=== PATIENT | male | born 1950 | race Caucasian/White ===

== ENCOUNTER 2017-11-10 16:59 | Inpatient (IN) | payer MEDICAID, MEDICARE ==
[~2017-11-10] VITALS: Ht 177.8 cm; Wt 81.2 kg
--- NOTE | 2017-11-10 17:02 | NUR ---
PT HERNANDO FROM THE STREETS TO ER BED 11 C/O L SIDED CHEST PAIN R/T LUE. STARTED 45 MINS ONLINE FACILITATOR. HX OF HEART BYPASS 2013. GOWNED AND PLACED ON MONITOR. STABLE VITALS. AWAITING MD AGUILAR.
--- NOTE | 2017-11-10 17:04 | NUR ---
DR TAMAYO AT BEDSIDE FOR EVAL.
--- NOTE | 2017-11-10 17:18 | NUR ---
IV LINE STARTED BLOOD DRAWN AND SENT TO LAB.
[2017-11-10 17:22] LABS: BASOPHILS % (AUTO) 0.5 % (0.0-2.0); EOSINOPHILS # (AUTO) 0.4 /CMM (0.0-0.7); EOSINOPHILS % (AUTO) 5.3 % (0.0-6.0); HEMATOCRIT 43 % (39-51); HEMOGLOBIN 14.3 g/dL (13.5-17.5); LYMPHOCYTES # (AUTO) 0.7 /CMM (0.8-4.8); LYMPHOCYTES % (AUTO) 8.7 % (20.0-44.0); MEAN CORPUSCULAR HEMOGLOBIN 28 PG (26.0-33.0); MEAN CORPUSCULAR HGB CONC 33 g/dl (31.0-36.0); MEAN CORPUSCULAR VOLUME 83 fL (80-96); MONOCYTES # (AUTO) 0.7 /CMM (0.1-1.30); MONOCYTES % (AUTO) 9.3 % (2.0-12.0); NEUTROPHILS % (AUTO) 76.2 % (43.0-81.0); PLATELET COUNT (AUTO) 245 /CMM (150-450); RDW COEFFICIENT OF VARIATION 17.1 (11.5-15.0); WHITE BLOOD COUNT (AUTO) 7.8 K/uL (4.3-11.0)
[2017-11-10 17:33] LABS: CALCIUM, SERUM 8.4 mg/dL (8.5-10.1); CREATININE 1.1 mg/dL (0.6-1.3); POTASSIUM 4.2 mmol/L (3.5-5.1)
[2017-11-10] MEDS ORDERED: HYDR-552 PO (17:33)
[2017-11-10] MEDS ORDERED: ATOR80TA PO (17:33)
[2017-11-10] MEDS ORDERED: FURO-145 PO (17:33)
[2017-11-10] MEDS ORDERED: PANT40TA2 PO (17:33)
[2017-11-10] MEDS ORDERED: SACU1TAB PO (17:33)
[2017-11-10] MEDS ORDERED: ASPI-1152 PO (17:33)
[2017-11-10] MEDS ORDERED: TIOT18CA3 IH (17:33)
--- NOTE | 2017-11-10 17:33 | NUR ---
RADIOLOGY AT BEDSIDE FOR CHEST XRAY.
[2017-11-10 17:36] LABS: INR 0.98 (0.87-1.13); PROTHROMBIN TIME 10.2 SECS (9.5-12.7)
--- NOTE | 2017-11-10 17:37 | NUR ---
CALLED NURSING SUP. FOR TELE BED
[2017-11-10 17:39] LABS: ALBUMIN 2.4 g/dL (3.4-5.0); BILIRUBIN,DIRECT 0.1 mg/dL (0.0-0.2); BILIRUBIN,TOTAL 0.3 mg/dL (0.2-1.0)
[2017-11-10 17:41] LABS: TROPONIN I 0.03 ng/mL (0.00-0.056)
--- NOTE | 2017-11-10 18:40 | NUR ---
EPIC PAGED, DIRECTOR OF SPECIAL EVENTS
--- NOTE | 2017-11-10 18:50 | NUR ---
TELE 309-2
--- NOTE | 2017-11-10 19:17 | NUR ---
REPORT GIVEN TO EDITH. PT AWAITING TRANFER TO FLOOR.
[2017-11-10 19:45] VITALS: BP 128/68
--- NOTE | 2017-11-10 19:45 | NUR ---
TOOL CHECKERCARRY OUT CLERK NOTES RECEIVED ADMISSION FROM ER THIS 67 Y.O. MALE,HOMELESS,WITH CHIEF COMPLAINTS OF SHOOTING CHEST PAIN RADIATING TO RIGHT UPPER EXTREMITY,COUGH X 1 WEEK.ALERT,ORIENTED X3,BREATHING REGULAR,NO SKIN ISSUES.SALINE LOCK RIGHT WRIST INTACT AND PATENT.SHIVERING BUT NO FEVER 97.8 ORALLY.WARM BLANKET PROVIDED AND HE FEELS BETTER.KEPT COMFORTABLY ON BED,CALL LIGHT IN REACH,AWAITING FOR DOCTORS ORDER.
[2017-11-10 20:56] VITALS: BP 128/68
[2017-11-10] MEDS ORDERED: IV NS 0.9% 1,000 ML IV PRN (21:22)
[2017-11-10] MEDS ORDERED: ACETAMINOPHEN 325 MG TABLET PO PRN (21:30)
[2017-11-10] MEDS ORDERED: ZOLPIDEM TARTRATE 5 MG TABLET PO PRN (21:30)
[2017-11-10] MEDS ORDERED: ONDANSETRON HCL/PF 4 MG/2 ML VIAL IVP PRN (21:30)
[2017-11-10] MEDS ORDERED: HYDROCODONE/APAP 5/325MG 1 EACH TABLET PO PRN (21:30)
[2017-11-10] MEDS ORDERED: MAGNESIUM HYDROXIDE 30 ML UDC PO PRN (21:30)
[2017-11-10] MEDS ORDERED: MAG HYDROX/AL HYDROX/SIMETH 30 ML UDC PO PRN (21:30)
[2017-11-10] MEDS ORDERED: Z GUARD REMEDY 2 OZ OINT TP PRN (21:30)
--- NOTE | 2017-11-10 21:33 | NUR ---
MERCERIZING RANGE FEEDER NOTES STARTED ON NS 1LITER AT 75ML/HR RATE ORDERED
[2017-11-11] VITALS: BP 104/58
--- NOTE | 2017-11-11 01:30 | NUR ---
COMMUNITY SERVICE REPRESENTATIVE NOTES AWAKE,HAVING EPISODE OF COUGH,VOMITED MOSTLY MUCUS.
--- NOTE | 2017-11-11 01:32 | NUR ---
YARN DYER NOTES MEDICATED WITH ZOFRAN 4MG IV ORDERED
[2017-11-11] MEDS ORDERED: ONDANSETRON HCL/PF 4 MG/2 ML VIAL ONE (01:34)
[2017-11-11] MEDS ORDERED: ALBUTEROL FS 2.5 MG/0.5 ML VIAL.NEB ONE (01:38)
[2017-11-11] MEDS: ALBUTEROL FS 2.5 MG/0.5 ML VIAL.NEB NEB PRN ×2 (01:40→12:19)
--- NOTE | 2017-11-11 01:40 | NUR ---
TRADE RECRUITER NOTES SLIGHT WHEEZING NOTED,RT AT BEDSIDE TO ADMINISTER BREATHING TREATMENT SCHEDULED PRN FOR SOB
[2017-11-11] MEDS ORDERED: HYDROCODONE/APAP 5/325MG 1 EACH TABLET ONE (01:41)
--- NOTE | 2017-11-11 01:42 | NUR ---
ASSISTANT STORE DIRECTOR NOTES PAIN MANAGEMENT C/O ABDOMINAL PAIN 7/10 ON PAIN SCALE,MEDICATED WITH NORCO 5/325MG, 1TAB PO ORDERED.
--- NOTE | 2017-11-11 04:45 | NUR ---
BAKER SECOND NOTES COUGHS A LOT,NIRMAL ROBLES WAS PAGE FOR COUGH MEDS, AWAITING TO CALL BACK.
--- NOTE | 2017-11-11 05:00 | NUR ---
SPIRITUAL COUNSELOR NOTES NIRMAL CALLED BACK WITH NEW ORDER FOR ROBITUSSIN AC 5ML PO Q 6 HOURS PRN FOR COUGH NOTED AND CARRIED OUT.
[2017-11-11] MEDS ORDERED: GUAIFENESIN/CODEINE 10 ML UDC ONE (05:12)
--- NOTE | 2017-11-11 05:14 | NUR ---
GUEST SERVICES NOTES MEDICATED WITH ROBITUSSIN AC 5ML PO FOR COUGH
[2017-11-11] MEDS ORDERED: GUAIFENESIN/CODEINE 10 ML UDC PO PRN (05:30)
--- NOTE | 2017-11-11 06:21 | NUR ---
CHILD CENTER ASSISTANT NOTES FAIRLY RESTED.STILL WITH ON AND OFF PRODUCTIVE COUGH,MANAGE WITH DYANAITUSSIN AC ORDERED.BREATHING TREATMENT HELPS.IN NO ACUTE DISTRESS.DENIES CHEST PAIN.IVF IN PROGRESS,CALLL LIGHT IN REACH,NEEDS ATTENDED.
[2017-11-11 08:00] VITALS: BP 108/63
--- NOTE | 2017-11-11 08:14 | NUR ---
RN OPENING NOTES RECEIVED PATIENT RESTING COMFORTABLY IN BED. AOX2/3 FORGETFUL. DENIES SOB. PATIENT STATES THAT HE IS CONTINUING TO HAVE UNCHANGED CHEST PAIN RADIATING TO THE LEFT ARM. RESPIRATIONS EVEN AND UNLABORED. NO ACUTE DISTRESS NOTED. SATURATING ADEQUATELY ON RA. IV ON THE RIGHT WRIST 18G WITH NS RUNNING AT 75ML/HR. IV PATENT AND INTACT. BED LOCKED IN THE LOWEST POSITION WITH SIDE RAILS UP X2. CALL LIGHT WITHIN REACH. WILL CONTINUE TO MONITOR, ASSESS AND EDUCATE PATIENT THROUGHOUT SHIFT. Addendum: 11/11/17 at 0823 by BETHANY STEEN RN RN OPENING NOTES RECEIVED PATIENT RESTING COMFORTABLY IN BED. AOX3. DENIES SOB. PATIENT STATES THAT HE IS CONTINUING TO HAVE UNCHANGED CHEST PAIN RADIATING TO THE LEFT ARM. RESPIRATIONS EVEN AND UNLABORED. NO ACUTE DISTRESS NOTED. SATURATING ADEQUATELY ON RA. IV ON THE RIGHT WRIST 18G WITH NS RUNNING AT 75ML/HR. IV PATENT AND INTACT. BED LOCKED IN THE LOWEST POSITION WITH SIDE RAILS UP X2. CALL LIGHT WITHIN REACH. WILL CONTINUE TO MONITOR, ASSESS AND EDUCATE PATIENT THROUGHOUT SHIFT.
[2017-11-11 08:38] LABS: BASOPHILS % (AUTO) 0.8 % (0.0-2.0); EOSINOPHILS # (AUTO) 0.3 /CMM (0.0-0.7); EOSINOPHILS % (AUTO) 7.7 % (0.0-6.0); HEMATOCRIT 38 % (39-51); HEMOGLOBIN 12.5 g/dL (13.5-17.5); MEAN CORPUSCULAR HEMOGLOBIN 28 PG (26.0-33.0); MEAN CORPUSCULAR HGB CONC 33 g/dl (31.0-36.0); MEAN CORPUSCULAR VOLUME 86 fL (80-96); MONOCYTES # (AUTO) 0.6 /CMM (0.1-1.30); MONOCYTES % (AUTO) 13.5 % (2.0-12.0); NEUTROPHILS # (AUTO) 2.5 /CMM (1.8-8.9); PLATELET COUNT (AUTO) 190 /CMM (150-450); RDW COEFFICIENT OF VARIATION 18.6 (11.5-15.0); RED BLOOD CELL COUNT(AUTO) 4.41 MIL/uL (4.5-6.0); WHITE BLOOD COUNT (AUTO) 4.5 K/uL (4.3-11.0)
[2017-11-11] MEDS ORDERED: TIOTROPIUM BROMIDE 6 CAP/BOX CAP.W.DEV IH SCH (09:00)
[2017-11-11] MEDS ORDERED: FUROSEMIDE 20 MG TABLET PO SCH (09:00)
[2017-11-11] MEDS ORDERED: ASPIRIN EC 81 MG TABLET.DR PO SCH (09:00)
[2017-11-11] MEDS ORDERED: REGADENOSON 0.4 MG/5 ML DISP.SYRIN IVP ONE (09:00)
[2017-11-11 09:12] LABS: CALCIUM, SERUM 7.8 mg/dL (8.5-10.1); MAGNESIUM 1.9 mg/dL (1.8-2.4); POTASSIUM 4.2 mmol/L (3.5-5.1)
--- NOTE | 2017-11-11 09:31 | NUR ---
RN NOTES PATIENT IS BECOMING HOSTILE AND AGGRESSIVE. REFUSING TO GIVE UP MEDICATIONS. NOTIFIED PHARMACY. NOTIFIED CHARGE NURSE.
--- NOTE | 2017-11-11 11:00 | NUR ---
JOSEPH MARTINEZ PATEINT TAKEN FOR FIRST PART OF STRESS TEST. CONSENT SIGNED PATIENT NPO.
--- NOTE | 2017-11-11 12:26 | NUR ---
RN NOTES PATIENT REFUSING SECOND PART OF STRESS TEST. DR. COTTRELL AWARE. DR. WILL AWARE. PATIENT CAN LEAVE AMA PER DR. COTTRELL.
[2017-11-11] MEDS ORDERED: IPRATROPIUM NEB FS 0.5 MG/2.5 ML AMPUL.NEB NEB SCH (13:30)
--- NOTE | 2017-11-11 15:21 | NUR ---
RN NOTES PATIENT REFUSED ALL TEACHING AND D/C PAPER WORK
--- NOTE | 2017-11-11 15:21 | NUR ---
RN CLOSING NOTES PATIENT LEFT AMA. PATIENT NON COMPLIANT. AGGRESSIVE BEHAVIOR. PATIENT DISCUSSED CONSEQUENCES OF LEAVING AMA. DR. COTTRELL AND DR. WILL AWARE. PATIENT VERBALIZED UNDERSTANDING OF LEAVING AGAINST MEDICAL ADVICE. ALL MEDICATIONS RETURNED TO PATIENT. PATIENT REFUSED TO RECEIVE EXITCARE EDUCATION.
[2017-11-11] MEDS ORDERED: ATORVASTATIN 40 MG TABLET PO SCH (22:00)
== END 2017-11-11 13:50 | disposition left against medical advice (07) | DRG 198 ==
LOC: ER 17:04 → TELE 19:07 → MED 11-11 10:27
PROVIDERS: ADMIT Internal Medicine; ATTEND Internal Medicine
DX: I25.10 Atherosclerotic heart disease of native coronary artery without angina pectoris (principal); E44.0 Moderate protein-calorie malnutrition; F25.9 Schizoaffective disorder, unspecified; I10 Essential (primary) hypertension; E78.5 Hyperlipidemia, unspecified; F17.210 Nicotine dependence, cigarettes, uncomplicated; K21.9 Gastro-esophageal reflux disease without esophagitis; Z59.0 Homelessness; Z87.11 Personal history of peptic ulcer disease; Z95.1 Presence of aortocoronary bypass graft; Z68.25 Body mass index [BMI] 25.0-25.9, adult; F31.9 Bipolar disorder, unspecified; Z95.810 Presence of automatic (implantable) cardiac defibrillator; Z71.6 Tobacco abuse counseling
CPT/HCPCS: 36415; 71010-TC; 80048-TC; 80061-TC; 80076-TC; 83735-TC; 84100-TC; 84484-TC; 85025-TC; 85730-TC; 87081-TC; J2405; J2785; J7030

== ENCOUNTER 2018-02-17 20:16 | Inpatient (IN) | payer MEDICAID, MEDICARE ==
[~2018-02-17] VITALS: Ht 177.8 cm; Wt 81.6 kg
[~2018-02-17 20:16] MED LIST: ASPI-1152 PO; ATOR80TA PO; FURO-145 PO; HYDR-552 PO; PANT40TA2 PO; SACU1TAB PO; TIOT18CA3 IH
--- NOTE | 2018-02-17 20:16 | NUR ---
BIBRA 39 C/O RIGHT KNEE/ELBOW PAIN, CHEST PAIN S/P PUSHED FROM BEHIND BY DRUNK BYSTANDERS. -KO AND REFUSES [employer] REPORT. STATES SOME "TIGHTNESS IN CHEST AND I HAVE A PACEMAKER IN". VSS NAD. A/OX4 ABLE TO MAKE NEEDS KNOWN BUT HAS SOME SLURRED SPEECH. WILL CONTINUE TO MONITOR FOR ANY CHANGES DURING THE SHIFT.
[2018-02-17] MEDS ORDERED: ASPIRIN 81 MG TAB.CHEW PO ONE (22:30)
[2018-02-17] MEDS ORDERED: NITROGLYCERIN PACKET 1 GM PACKET TD ONE (22:30)
[2018-02-17] MEDS ORDERED: HYDROCODONE/APAP 10/325MG 1 EA TABLET PO ONE (22:30)
[2018-02-17] MEDS ORDERED: NITROGLYCERIN 0.4 MG/TAB BOTTLE SL ONE (22:30)
[2018-02-17] MEDS ORDERED: HYDROCODONE/APAP 10/325MG 1 EA TABLET ONE ×2 (22:37→22:45)
[2018-02-17] MEDS ORDERED: NITROGLYCERIN 0.4 MG/TAB BOTTLE ONE ×2 (22:38→22:45)
[2018-02-17] MEDS ORDERED: ASPIRIN EC 81 MG TABLET.DR PO ONE (22:38)
[2018-02-17] MEDS ORDERED: NITROGLYCERIN PACKET 1 GM PACKET ONE ×2 (22:38→22:45)
[2018-02-17] MEDS ORDERED: ASPIRIN 81 MG TAB.CHEW ONE (22:45)
--- NOTE | 2018-02-17 22:51 | NUR ---
CHETS XRAY AT BEDSIDE
[2018-02-17 23:00] LABS: EOSINOPHILS % (AUTO) 3.2 % (0.0-6.0); HEMATOCRIT 39 % (39-51); HEMOGLOBIN 12.5 g/dL (13.5-17.5); LYMPHOCYTES # (AUTO) 1.7 /CMM (0.8-4.8); LYMPHOCYTES % (AUTO) 21.2 % (20.0-44.0); MEAN CORPUSCULAR HGB CONC 32 g/dl (31.0-36.0); MEAN CORPUSCULAR VOLUME 84 fL (80-96); MONOCYTES # (AUTO) 0.7 /CMM (0.1-1.30); MONOCYTES % (AUTO) 8.1 % (2.0-12.0); NEUTROPHILS # (AUTO) 5.5 /CMM (1.8-8.9); NEUTROPHILS % (AUTO) 67.5 % (43.0-81.0); PLATELET COUNT (AUTO) 244 /CMM (150-450); RDW COEFFICIENT OF VARIATION 18.1 (11.5-15.0); RED BLOOD CELL COUNT(AUTO) 4.59 MIL/uL (4.5-6.0); WHITE BLOOD COUNT (AUTO) 8.2 K/uL (4.3-11.0)
[2018-02-17 23:08] LABS: CALCIUM, SERUM 7.8 mg/dL (8.5-10.1); CREATININE 1.2 mg/dL (0.6-1.3); POTASSIUM 4.4 mmol/L (3.5-5.1)
[2018-02-17 23:16] LABS: TROPONIN I 0.037 ng/mL (0.00-0.056)
[2018-02-17 23:21] LABS: ALBUMIN 2.2 g/dL (3.4-5.0); BILIRUBIN,DIRECT 0.1 mg/dL (0.0-0.2); BILIRUBIN,TOTAL 0.4 mg/dL (0.2-1.0); TOTAL PROTEIN, SERUM 5.3 g/dL (6.4-8.2)
--- NOTE | 2018-02-17 23:30 | NUR ---
PT OFF TO CT
--- NOTE | 2018-02-17 23:33 | NUR ---
CALLED [facility] FOR PANEL CALL
[2018-02-17] MEDS ORDERED: IV NS 0.9% 250 ML IV ONE (23:37)
[2018-02-17] MEDS ORDERED: IOHEXOL-350 100 ML VIAL IV ONE (23:37)
[2018-02-17] MEDS ORDERED: CT SWABBABLE VALVE TRANS SET 1 EA INFUS.SET MC ONE (23:37)
[2018-02-18] MEDS ORDERED: IOHEXOL-350 100 ML VIAL IV ONE
--- NOTE | 2018-02-18 00:24 | NUR ---
PT NOT ABLE TO URINATE. ENDORSED TO FLOOR JOSEPH REINOSO
[2018-02-18] MEDS ORDERED: Z GUARD REMEDY 2 OZ OINT TP PRN (00:30)
[2018-02-18] MEDS ORDERED: ACETAMINOPHEN 325 MG TABLET PO PRN (00:30)
[2018-02-18] MEDS ORDERED: MAG HYDROX/AL HYDROX/SIMETH 30 ML UDC PO PRN (00:30)
[2018-02-18] MEDS ORDERED: MAGNESIUM HYDROXIDE 30 ML UDC PO PRN (00:30)
[2018-02-18] MEDS ORDERED: MORPHINE SULFATE INJ 2 MG/ML DISP.SYRIN IV PRN (00:30)
[2018-02-18] MEDS ORDERED: ONDANSETRON HCL/PF 4 MG/2 ML VIAL IVP PRN (00:30)
[2018-02-18] MEDS ORDERED: ENOXAPARIN SODIUM 40 MG/0.4 ML DISP.SYRIN SQ SCH (00:30)
--- NOTE | 2018-02-18 01:30 | NUR ---
APARTMENT MAINTENANCE TECHNICIAN ADMITTING NOTES RECEIVED REPORT FROM [facility] ED RN. PATIENT ADMITTED TO ROOM 112-1 W/ TELEMETRY STATUS. PATIENT A/A/O X3, ABLE TO ANSWER QUESTIONS & FOLLOW SIMPLE COMMANDS. NOTED W/ BEHAVIORAL ISSUES WHEN ADMITTED. PATIENT WAS YELLING AT STAFF BECAUSE HE DIDN'T WANT HIS BELONGINGS TO BE TOUCHED & WAS DEMANDING FOR HIS CIGARETTES. NOTED W/ STEADY GAIT WHEN AMBULATING FROM GURNEY TO BED. BREATHING EVEN & UNLABORED, SATING @ 95% ON ROOM AIR. DENIES ANY SOB OR DIFFICULTY BREATHING. SKIN WARM, DRY & INTACT. C/O NON-RADIATING CHEST PAIN OF 6 ON 0-10 PAIN SCALE. TELE LEADS APPLIED AND LEFT CHEST WALL PACEMAKER NOTED. ON TELE W/ SINUS RHYTHM IN THE 70S. RIGHT AC IV #18 INTACT & FLUSHING WELL W/ DRESSING CDI. ORIENTED TO ROOM AND INSTRUCTED TO USE CALL LIGHT FOR ASSISTANCE. OTHER SAFETY MEASURES MAINTAINED. AWAITING ADMITTING ORDERS. WILL CONTINUE TO MONITOR PATIENT CLOSELY.
[2018-02-18] MEDS: FUROSEMIDE 40 MG/4 ML VIAL IV SCH ×2 (01:58→09:45)
[2018-02-18] MEDS ORDERED: MORPHINE SULFATE INJ 2 MG/ML DISP.SYRIN ONE (02:05)
[2018-02-18 04:00] VITALS: BP 108/61
[2018-02-18 06:32] LABS: APPEARANCE,URINE CLEAR (CLEAR); BILIRUBIN,URINE NEGATIVE (NEGATIVE); BLOOD, URINE NEGATIVE Ery/uL (NEGATIVE); COLOR,URINE OTHER (YELLOW); KETONES,URINE NEGATIVE (NEGATIVE); LEUKOCYTE ESTERASE ,URINE NEGATIVE (NEGATIVE); NITRITE, URINE NEGATIVE (NEGATIVE); PROTEIN,URINE NEGATIVE (NEGATIVE); UGLUCOSE NEGATIVE (NEGATIVE); UROBILINOGEN,URINE 0.2 EU/dL (0.2)
[2018-02-18] MEDS ORDERED: PANTOPRAZOLE 40 MG TABLET.DR PO SCH (07:30)
--- NOTE | 2018-02-18 07:30 | NUR ---
FIBER OPTICS TECHNICIAN INITIAL NOTES RECEIVED PATIENT IN BED, AOX2-3, ON ROOM AIR, PATIENT REFUSED LABS INITIALLY THIS MORNING AND STATED LATER HE DID NOT REFUSE, LAB CALLED TO TRY DRAW BLOOD, REFUSED EPIDEMIOLOGY INTERNSHIP HELP INITIALLY AND AGAIN CHANGED HIS MIND, TELE MONITORING 82 HR, NPO AT THIS MOMENT FOR CARDIAC CONSULT, IV R AC 18, SL, BED IN LOW AND LOCKED POSITION, CALL LIGHT WITHIN REACH, WILL CONTINUE TO MONITOR.
[2018-02-18 08:00] VITALS: BP 118/68
[2018-02-18] MEDS: IPRATROPIUM NEB FS 0.5 MG/2.5 ML AMPUL.NEB NEB SCH ×3 (08:47→20:11)
--- NOTE | 2018-02-18 08:49 | NUR ---
RT NOTE: PATIENT IS VERBALLY ABUSIVE AND SHOUTING PROFANITIES. PATIENT IS VERY ANGRY AND STATES THAT HE SHOULD BE RESPECTED BECAUSE HE IS WHITE. I APOLOGIZE FOR ANY MISUNDERSTANDING AND HE IS NOW TAKING THE BREATHING TREATMENT QUIETLY.
--- NOTE | 2018-02-18 09:13 | NUR ---
PHARMACY AIDE NOTES PATIENT IS REFUSING MEDICATIONS UNTIL HE SEES MATERIAL HANDLER FLOORPERSON, CONSULT IN PLACE AWAITING DR. EXPLAINED SEVERAL TIMES THE DR WILL BE SEEING HIM PATIENT IMPATIENT AND YELLING.
--- NOTE | 2018-02-18 09:44 | NUR ---
VULCANIZING PRESS OPERATOR NOTES OK TO TAKE PATIENT OFF NPO AND FEED BREAKFAST PER DR. WILL
[2018-02-18] MEDS: PANTOPRAZOLE 40 MG TABLET.DR PO SCH (09:45)
[2018-02-18] MEDS: ASPIRIN EC 81 MG TABLET.DR PO SCH (09:45)
[2018-02-18] MEDS ORDERED: BUMETANIDE INJ 8 MG in IV NS 0.9% 48 ML IV ONE (11:30)
[2018-02-18 12:00] VITALS: BP 96/60
[2018-02-18] MEDS: MORPHINE SULFATE INJ 4 MG/ML DISP.SYRIN IV PRN ×3 (14:50→22:45)
[2018-02-18 16:00] VITALS: BP 104/60
--- NOTE | 2018-02-18 18:58 | NUR ---
ADMINISTRATOR OF HOME HEALTH NOTES PATIENT RESTING IN BED, NO SIGNS OF DISTRESS, ALL NEEDS MET, PAIN MEDICATION GIVEN, WILL ENDORSE TO CANDLES POURER FOR CONTINUITY OF CARE.
[2018-02-18 20:00] VITALS: BP 114/60
--- NOTE | 2018-02-18 20:00 | NUR ---
RN INITIAL NOTES RECEIVED PATIENT IN BED, AOX2-3, ON ROOM AIR, IV R AC 18, SL, BED IN LOW AND LOCKED POSITION, CALL LIGHT WITHIN REACH, WILL CONTINUE TO MONITOR.
[2018-02-18] MEDS: ENOXAPARIN SODIUM 40 MG/0.4 ML DISP.SYRIN SQ SCH ×2 (21:00→22:44)
[2018-02-18] MEDS: ATORVASTATIN 40 MG TABLET PO SCH (21:19)
[2018-02-19] VITALS: BP 107/63
[2018-02-19] MEDS: IPRATROPIUM NEB FS 0.5 MG/2.5 ML AMPUL.NEB NEB SCH ×4 (01:41→19:24)
[2018-02-19 04:00] VITALS: BP 113/58
--- NOTE | 2018-02-19 06:18 | NUR ---
RN CLOSING NOTES PATIENT RESTING IN BED, NO SIGNS OF DISTRESS, ALL NEEDS MET, PAIN MEDICATION GIVEN, WILL ENDORSE TO AM SHIFT FOR CONTINUITY OF CARE.
--- NOTE | 2018-02-19 07:31 | NUR ---
RN NOTES RECEIVED PT FROM MASS SPECTROMETRY MANAGER, A&0X3, ON ROOM AIR NO DISTRESS NOTED. RAC 18G IV SITE INTACT NO IVF. BED LOCKED AND IN LOWEST POSITION, CALL LIGHT WITHIN REACH, SIDE RAILS UPX3, WILL CONT TO SHAHRZAD.
[2018-02-19 08:00] VITALS: BP 112/62
[2018-02-19 08:06] LABS: BASOPHILS % (AUTO) 0.6 % (0.0-2.0); EOSINOPHILS % (AUTO) 5.6 % (0.0-6.0); HEMATOCRIT 38 % (39-51); HEMOGLOBIN 12.8 g/dL (13.5-17.5); LYMPHOCYTES # (AUTO) 1.6 /CMM (0.8-4.8); MEAN CORPUSCULAR HGB CONC 33 g/dl (31.0-36.0); MEAN CORPUSCULAR VOLUME 83 fL (80-96); MONOCYTES # (AUTO) 0.6 /CMM (0.1-1.30); NEUTROPHILS # (AUTO) 4.3 /CMM (1.8-8.9); NEUTROPHILS % (AUTO) 62.8 % (43.0-81.0); PLATELET COUNT (AUTO) 304 /CMM (150-450); RDW COEFFICIENT OF VARIATION 17.9 (11.5-15.0); RED BLOOD CELL COUNT(AUTO) 4.61 MIL/uL (4.5-6.0); WHITE BLOOD COUNT (AUTO) 6.9 K/uL (4.3-11.0)
[2018-02-19] MEDS: ASPIRIN EC 81 MG TABLET.DR PO SCH (08:14)
[2018-02-19] MEDS: PANTOPRAZOLE 40 MG TABLET.DR PO SCH (08:15)
[2018-02-19] MEDS: MORPHINE SULFATE INJ 4 MG/ML DISP.SYRIN IV PRN ×4 (08:15→21:15)
[2018-02-19 09:54] LABS: CALCIUM, SERUM 7.9 mg/dL (8.5-10.1); CREATININE 1.5 mg/dL (0.6-1.3); MAGNESIUM 1.8 mg/dL (1.8-2.4); PHOSPHORUS 4.3 mg/dL (2.5-4.9); POTASSIUM 3.8 mmol/L (3.5-5.1)
[2018-02-19] MEDS ORDERED: BUMETANIDE INJ 8 MG in IV NS 0.9% 48 ML IV ONE (10:00)
[2018-02-19 16:00] VITALS: BP 110/64
[2018-02-19 18:25] LABS: THYROID STIMULATING HORMONE 1.838 uIU/mL (0.358-3.74)
--- NOTE | 2018-02-19 18:30 | NUR ---
RN NOTES PT REMAINED IN STABLE CONDITION THROUGHOUT THE SHIFT, ALL NEEDS MET. NO SIGNIFICANT CHANGES NOTED WILL ENDORSE TO ONCOMING SHIFT.
[2018-02-19 20:00] VITALS: BP 110/69
--- NOTE | 2018-02-19 20:00 | NUR ---
RN NOTES PT RESTING IN BED, A&0X3, ON ROOM AIR, NO DISTRESS NOTED. RAC 18G IV SITE INTACT NO IVF. BED LOCKED AND IN LOWEST POSITION, CALL LIGHT WITHIN REACH, SIDE RAILS UPX3, WILL CONT TO SHAHRZAD.
[2018-02-19] MEDS: ATORVASTATIN 40 MG TABLET PO SCH (21:14)
[2018-02-20] VITALS: BP 131/72
[2018-02-20] MEDS: IPRATROPIUM NEB FS 0.5 MG/2.5 ML AMPUL.NEB NEB SCH ×3 (00:53→13:30)
[2018-02-20] MEDS: MORPHINE SULFATE INJ 4 MG/ML DISP.SYRIN IV PRN ×2 (03:57→08:17)
[2018-02-20 04:00] VITALS: BP 107/72
--- NOTE | 2018-02-20 06:13 | NUR ---
RN CLOSING NOTES PATIENT RESTING IN BED, NO SIGNS OF DISTRESS, ALL NEEDS MET, PAIN MEDICATION GIVEN, WILL ENDORSE TO AM SHIFT FOR CONTINUITY OF CARE.
[2018-02-20 07:21] LABS: BASOPHILS % (AUTO) 0.4 % (0.0-2.0); EOSINOPHILS % (AUTO) 4.5 % (0.0-6.0); HEMATOCRIT 38 % (39-51); HEMOGLOBIN 12.5 g/dL (13.5-17.5); LYMPHOCYTES # (AUTO) 1.3 /CMM (0.8-4.8); LYMPHOCYTES % (AUTO) 16.7 % (20.0-44.0); MEAN CORPUSCULAR HGB CONC 33 g/dl (31.0-36.0); MEAN CORPUSCULAR VOLUME 84 fL (80-96); MONOCYTES # (AUTO) 0.9 /CMM (0.1-1.30); MONOCYTES % (AUTO) 11.6 % (2.0-12.0); NEUTROPHILS % (AUTO) 66.8 % (43.0-81.0); PLATELET COUNT (AUTO) 301 /CMM (150-450); RDW COEFFICIENT OF VARIATION 17.7 (11.5-15.0); RED BLOOD CELL COUNT(AUTO) 4.58 MIL/uL (4.5-6.0); WHITE BLOOD COUNT (AUTO) 7.6 K/uL (4.3-11.0)
[2018-02-20 07:44] LABS: ALBUMIN 2.2 g/dL (3.4-5.0); BILIRUBIN,TOTAL 0.4 mg/dL (0.2-1.0); CALCIUM, SERUM 7.9 mg/dL (8.5-10.1); CREATININE 1.3 mg/dL (0.6-1.3); MAGNESIUM 1.8 mg/dL (1.8-2.4); PHOSPHORUS 4.2 mg/dL (2.5-4.9); POTASSIUM 4.1 mmol/L (3.5-5.1); TOTAL PROTEIN, SERUM 5.8 g/dL (6.4-8.2)
[2018-02-20 08:00] VITALS: BP 110/70
[2018-02-20] MEDS: ASPIRIN EC 81 MG TABLET.DR PO SCH (08:16)
[2018-02-20] MEDS: PANTOPRAZOLE 40 MG TABLET.DR PO SCH (08:16)
[2018-02-20] MEDS ORDERED: FUROSEMIDE 40 MG TABLET PO SCH (09:30)
[2018-02-20] MEDS ORDERED: CARVEDILOL 3.125 MG TABLET PO SCH (09:30)
[2018-02-20] MEDS ORDERED: FURO40TA5 PO (12:11)
[2018-02-20] MEDS ORDERED: CARV3.122 PO (12:11)
--- NOTE | 2018-02-20 13:47 | NUR ---
NO HHN GIVEN, PT BEING DISCHARGED
[2018-02-20 16:00] VITALS: BP 120/69
--- NOTE | 2018-02-20 17:03 | NUR ---
MED SURG DISCHARGE NOTE PT DISCHARGED TO YOUR CHOICE BOARD AND INGRID. DISCHARGE INSTRUCTIONS AND RX GIVEN TO PT. PAPERWORK SIGNED EXIT CARE DONE. REMOVED ID BAND AND IV. BELONGINGS LIST SIGNED. SKIN INTACT. PT CLEAN AND DRY. TAXI VOUCHER GIVEN TO PT , PT WHEELED OUT BY MOLINA RUIZ WITH BELONGINGS. Addendum: 02/20/18 at 1746 by LASHAWN SAUCEDA RN CORE MEASURES DOCUMENTED.
== END 2018-02-20 17:10 | disposition home or self-care (01) | DRG 194 ==
LOC: ER 20:21 → TELE1 02-18 00:03 → MEDSG1 02-18 11:45
PROVIDERS: ADMIT Internal Medicine; ATTEND Internal Medicine
DX: I11.0 Hypertensive heart disease with heart failure (principal); E44.0 Moderate protein-calorie malnutrition; J90 Pleural effusion, not elsewhere classified; K86.89 Other specified diseases of pancreas; N28.1 Cyst of kidney, acquired; F25.9 Schizoaffective disorder, unspecified; I50.23 Acute on chronic systolic (congestive) heart failure; N14.1 Nephropathy induced by other drugs, medicaments and biological substances; Z95.1 Presence of aortocoronary bypass graft; E11.9 Type 2 diabetes mellitus without complications; I25.10 Atherosclerotic heart disease of native coronary artery without angina pectoris; Z95.0 Presence of cardiac pacemaker; Z87.11 Personal history of peptic ulcer disease; Z86.73 Personal history of transient ischemic attack (TIA), and cerebral infarction without residual deficits; Z82.49 Family history of ischemic heart disease and other diseases of the circulatory system; Z79.82 Long term (current) use of aspirin; Z79.899 Other long term (current) drug therapy; F11.10 Opioid abuse, uncomplicated; F17.200 Nicotine dependence, unspecified, uncomplicated; Z59.0 Homelessness; K21.9 Gastro-esophageal reflux disease without esophagitis; E78.5 Hyperlipidemia, unspecified; J40 Bronchitis, not specified as acute or chronic; T50.8X5A Adverse effect of diagnostic agents, initial encounter; Y92.099 Unspecified place in other non-institutional residence as the place of occurrence of the external cause; D63.8 Anemia in other chronic diseases classified elsewhere; F31.9 Bipolar disorder, unspecified
CPT/HCPCS: 36415; 71045-TC; 73080-TC; 73564-TC; 80048-TC; 80053-TC; 80061-TC; 80074; 80076-TC; 80305; 81000-TC; 83735-TC; 83880; 84100-TC; 84443-TC; 84484-TC; 85025-TC; 85378-TC; 87081-TC; 93307-TC; 93970-TC; 93971-TC; 94799-TC; A4216; A4606; G0480; J1650; J1940; J2270; J3490; J7030; J7050; Q9967; Z7610

== ENCOUNTER 2019-04-24 15:06 | Emergency (ER) | payer MEDICARE, MEDICAID ==
[~2019-04-24] VITALS: Ht 180.3 cm; Wt 90.7 kg
[~2019-04-24 15:06] MED LIST changes: +CARV3.122 PO; -FURO-145 PO; +FURO40TA5 PO; +HYDR-4384 PO; -HYDR-552 PO
--- NOTE | 2019-04-24 15:15 | NUR ---
PT HERNANDO FROM THE STREETS FOR GEN WEAKNESS, PT AAOX4, PT TO BED 14, PT ON MONITOR, VSS, PENDING MD AGUILAR
[2019-04-24 16:22] LABS: BASOPHILS # (AUTO) 0.1 /CMM (0.0-0.2); BASOPHILS % (AUTO) 1.2 % (0.0-2.0); EOSINOPHILS % (AUTO) 5.3 % (0.0-6.0); HEMATOCRIT 37 % (39-51); HEMOGLOBIN 11.8 g/dL (13.5-17.5); LYMPHOCYTES # (AUTO) 0.7 /CMM (0.8-4.8); LYMPHOCYTES % (AUTO) 11.1 % (20.0-44.0); MEAN CORPUSCULAR HGB CONC 32 g/dl (31.0-36.0); MEAN CORPUSCULAR VOLUME 83 fL (80-96); MONOCYTES # (AUTO) 0.7 /CMM (0.1-1.30); MONOCYTES % (AUTO) 10.3 % (2.0-12.0); NEUTROPHILS # (AUTO) 4.8 /CMM (1.8-8.9); NEUTROPHILS % (AUTO) 72.1 % (43.0-81.0); PLATELET COUNT (AUTO) 263 /CMM (150-450); RED BLOOD CELL COUNT(AUTO) 4.44 MIL/uL (4.5-6.0); WHITE BLOOD COUNT (AUTO) 6.6 K/uL (4.3-11.0)
[2019-04-24 16:31] LABS: CALCIUM, SERUM 8.3 mg/dL (8.5-10.1); POTASSIUM 4.1 mmol/L (3.5-5.1)
--- NOTE | 2019-04-24 19:15 | NUR ---
HOMPatient given written and verbal discharge instructions. Patient verbalizes understanding of instructions. Patient is ambulatory with steady gait. Refuses offer of prison placement. Patient given list of available shelters in surrounding area.
[2019-04-24 19:52] VITALS: BP 126/75
== END 2019-04-24 19:53 | disposition home or self-care (01) ==
LOC: ER 15:16
DX: R53.83 Other fatigue (principal); I11.0 Hypertensive heart disease with heart failure; I50.9 Heart failure, unspecified; J90 Pleural effusion, not elsewhere classified; I25.10 Atherosclerotic heart disease of native coronary artery without angina pectoris; D64.9 Anemia, unspecified; E78.5 Hyperlipidemia, unspecified; K21.9 Gastro-esophageal reflux disease without esophagitis; Z95.818 Presence of other cardiac implants and grafts; Z95.0 Presence of cardiac pacemaker; Z59.0 Homelessness; Z79.899 Other long term (current) drug therapy
CPT/HCPCS: 36415; 71045-TC; 80048-TC; 83880; 84484-TC; 85025-TC; G0480

== ENCOUNTER 2019-04-25 21:13 | Inpatient (IN) | payer MEDICAID, MEDICARE ==
[~2019-04-25] VITALS: Ht 180.3 cm; Wt 82.6 kg
--- NOTE | 2019-04-25 21:23 | NUR ---
HERNADNO99 FROM [facility] C/O SOB X2 DAYS. -CHEST PAIN, -COUGH, -FEVER RECENTLY SEEN AND DISCHARGED FROM [facility] X1 DAY AGO. NO ACUTE DISTRESS NOTED. NO OTHER COMPLAINTS AT THIS TIME. ON MONITOR, MADE COMFORTABLE, AND READY FOR EVAL.
[2019-04-25 21:44] LABS: BASOPHILS % (AUTO) 0.6 % (0.0-2.0); HEMATOCRIT 37 % (39-51); HEMOGLOBIN 11.9 g/dL (13.5-17.5); LYMPHOCYTES % (AUTO) 16.7 % (20.0-44.0); MEAN CORPUSCULAR HGB CONC 33 g/dl (31.0-36.0); MEAN CORPUSCULAR VOLUME 83 fL (80-96); MONOCYTES # (AUTO) 0.7 /CMM (0.1-1.30); MONOCYTES % (AUTO) 11.3 % (2.0-12.0); NEUTROPHILS # (AUTO) 3.9 /CMM (1.8-8.9); NEUTROPHILS % (AUTO) 64.4 % (43.0-81.0); PLATELET COUNT (AUTO) 261 /CMM (150-450); RED BLOOD CELL COUNT(AUTO) 4.41 MIL/uL (4.5-6.0); WHITE BLOOD COUNT (AUTO) 6.1 K/uL (4.3-11.0)
[2019-04-25 21:54] LABS: CALCIUM, SERUM 8.1 mg/dL (8.5-10.1); CREATININE 1.1 mg/dL (0.6-1.3); POTASSIUM 3.9 mmol/L (3.5-5.1)
[2019-04-25 22:19] LABS: ALBUMIN 2.5 g/dL (3.4-5.0); BILIRUBIN,DIRECT 0.1 mg/dL (0.0-0.2); BILIRUBIN,TOTAL 0.4 mg/dL (0.2-1.0); TOTAL PROTEIN, SERUM 5.5 g/dL (6.4-8.2)
--- NOTE | 2019-04-25 22:32 | NUR ---
SEEN BY DR CARRANZA
--- NOTE | 2019-04-25 22:55 | NUR ---
PROVIDED BLANKET FOR COMFORT
[2019-04-25] MEDS ORDERED: FUROSEMIDE 20 MG/2 ML VIAL IV ONE (23:00)
[2019-04-25] MEDS ORDERED: FUROSEMIDE 20 MG/2 ML VIAL ONE (23:09)
--- NOTE | 2019-04-25 23:27 | NUR ---
IV MED GIVEN. PROVIDED PT WITH URINAL AT BEDSIDE
--- NOTE | 2019-04-25 23:41 | NUR ---
TELE 104 DX CHF.
--- NOTE | 2019-04-25 23:45 | NUR ---
CALLING REPORT TO JOSEPH LOGAN
--- NOTE | 2019-04-26 00:03 | NUR ---
Pt sitting up in bed w/ resp even & unlabored, milk offered, pt drinking w/ no aspiration of flds noted. pt on continuous pulse-ox w/ cardiac monitoring. pt updated on status, awaiting admission tele.
[2019-04-26] MEDS ORDERED: HYDROCODONE/APAP 5/325MG 1 EACH TABLET PO PRN (00:30)
[2019-04-26] MEDS ORDERED: ZOLPIDEM TARTRATE 5 MG TABLET PO PRN (00:30)
[2019-04-26] MEDS ORDERED: MAG HYDROX/AL HYDROX/SIMETH 30 ML UDC PO PRN (00:30)
[2019-04-26] MEDS ORDERED: ACETAMINOPHEN 325 MG TABLET PO PRN (00:30)
[2019-04-26] MEDS ORDERED: Z GUARD REMEDY 2 OZ OINT TP PRN (00:30)
[2019-04-26] MEDS ORDERED: MAGNESIUM HYDROXIDE 30 ML UDC PO PRN (00:30)
[2019-04-26] MEDS ORDERED: ONDANSETRON HCL/PF 4 MG/2 ML VIAL IVP PRN (00:30)
--- NOTE | 2019-04-26 00:30 | NUR ---
AUTOMOBILE TAILLIGHT ASSEMBLER NOTE RECEIVED PT FROM ER, AOX3, SPEECH CLEAR, ABLE TO MAKE NEEDS KNOWN, ON ROOM AIR, SR ON TELE, NO S/SX OF CARDIAC OR RESPIRATORY DISTRESS, DENIES PAIN, SKIN IS DRY, RAC #20G IV PATENT FLUSHING WELL, SITE IS CLEAN AND DRY, BELONGINGS LOGGED IN SHEET, EDUCATED BRICK VENEER MAKER LIGHT USE, SAFETY MAINTAINED CALL LIGHT WITHIN REACH, BED IN LOW LOCKED POSITION, WILL CONTINUE TO MONITOR FOR CHANGES IN CONDITION.
--- NOTE | 2019-04-26 00:31 | NUR ---
Pt transferred via gurney following ALS protocol to tele rm 104, ambulatory w/ steady gait fr gurney to bed w/ resp even & unlabored, nad noted.
[2019-04-26 00:44] VITALS: BP 140/79
[2019-04-26] MEDS ORDERED: IPRATROPIUM NEB FS 0.5 MG/2.5 ML AMPUL.NEB NEB SCH (01:30)
[2019-04-26 04:00] VITALS: BP 115/58
[2019-04-26 06:45] LABS: BASOPHILS # (AUTO) 0.1 /CMM (0.0-0.2); BASOPHILS % (AUTO) 1.5 % (0.0-2.0); EOSINOPHILS % (AUTO) 5.9 % (0.0-6.0); HEMATOCRIT 36 % (39-51); HEMOGLOBIN 11.9 g/dL (13.5-17.5); LYMPHOCYTES # (AUTO) 0.9 /CMM (0.8-4.8); LYMPHOCYTES % (AUTO) 14.9 % (20.0-44.0); MEAN CORPUSCULAR HGB CONC 33 g/dl (31.0-36.0); MEAN CORPUSCULAR VOLUME 83 fL (80-96); MONOCYTES # (AUTO) 0.8 /CMM (0.1-1.30); MONOCYTES % (AUTO) 13.8 % (2.0-12.0); NEUTROPHILS # (AUTO) 3.6 /CMM (1.8-8.9); NEUTROPHILS % (AUTO) 63.9 % (43.0-81.0); PLATELET COUNT (AUTO) 244 /CMM (150-450); RED BLOOD CELL COUNT(AUTO) 4.39 MIL/uL (4.5-6.0); WHITE BLOOD COUNT (AUTO) 5.7 K/uL (4.3-11.0)
[2019-04-26 06:54] LABS: CREATININE 1.1 mg/dL (0.6-1.3); MAGNESIUM 2.2 mg/dL (1.8-2.4); PHOSPHORUS 3.8 mg/dL (2.5-4.9); POTASSIUM 3.9 mmol/L (3.5-5.1)
[2019-04-26] MEDS ORDERED: PANTOPRAZOLE 40 MG TABLET.DR PO SCH (07:30)
--- NOTE | 2019-04-26 07:42 | NUR ---
PHOTO COLORER NOTE RECEIVED PATIENT I BED , ALERT ORIENTED , ON RA NO SOB NOTED AT THIS TIME , RT AC HL INTACT , BED IN LOWEST AND LOCKED POSITION, ON TELE MONITOR SR , NO SOB AT THIS TIME ,WILL CONT TO MONITOR CLOSELY
[2019-04-26 08:00] VITALS: BP 122/80
--- NOTE | 2019-04-26 08:02 | NUR ---
WOUND CARE CONSULT: PT PRESENTS WITH RED RASH TO GROIN AND PERINEUM, PRESENT ON ADMISSION. PT STATES IS HOMELESS. PT IS AMBULATORY AND CONTINENT AT THIS TIME WITH CURRENT JAYASHREE SCORE OF 22. Addendum: 04/26/19 at 0803 by KRZYSZTOF PENA WNDNU Amended: Links added.
[2019-04-26 08:09] VITALS: BP 122/80
[2019-04-26] MEDS ORDERED: CLOTRIMAZOLE 1% 15 GM TUBE TP SCH (09:00)
[2019-04-26] MEDS ORDERED: ASPIRIN EC 81 MG TABLET.DR PO SCH (09:00)
[2019-04-26] MEDS ORDERED: FUROSEMIDE 20 MG/2 ML VIAL IV SCH (09:00)
[2019-04-26] MEDS ORDERED: CARVEDILOL 3.125 MG TABLET PO SCH (09:00)
[2019-04-26] MEDS ORDERED: FUROSEMIDE 40 MG/4 ML VIAL IV SCH (09:00)
[2019-04-26] MEDS ORDERED: TIOTROPIUM BROMIDE 6 CAP/BOX CAP.W.DEV IH SCH (09:00)
--- NOTE | 2019-04-26 09:29 | NUR ---
HEAVY THREADER NOTE ABLE O TO TO BR ABLE TO URINATE WELL, NOT IN DISTRESS
--- NOTE | 2019-04-26 11:01 | NUR ---
PATIENT YELLING WANTED TO LEAVE HOSPITAL,VERBALIZED " I WANT TO LEAVE NOW",PER PT. HE NEED TO GO SOMEWHERE.HOWARD RASCON NOTIFIED AND OK PT. MAY GO AMA,JOSE ALCALA SSW AT BEDSIDE TALKING TO PATIENT REGARDING REFERRALS,PATIENT ANGRY AND VERBALIZED HE CAN TAKE CARE OF HIMSELF.IV D/C.AMA FORM SIGNED BY PATIENT AND EXPLAINED RISK OF LEAVING AMA ,ALSO ENCOURAGED TO GO BACK TO ER IF SYMPTOMS RECUR..
--- NOTE | 2019-04-26 11:22 | NUR ---
SW was informed by anvil worker Rachel Taylor that pt. is homeless and adamant on leaving AMA. SW met with pt. bedside with security present outside his room. Pt. is agitated and yelling loudly. Pt. states he wants to leave AMA. Pt. signed AMA. ANTOINE offered pt. the following homeless resources that he did accept: [facility] located at [address] ; [facility], [address] [place] [address], [place] ; [facility] [place], [address], [place] ; [facility] Homeless Resource Directory which includes food stamps, transitional housing, showers and hot meals etc; Mental Health clinics such as [facility] ; [facility] ; Health clinics;[facility] and Alcohol treatment centers such as [facility], ; [facility] Substance Abuse Hotline and [facility] . Homeless patient waiver form was signed by the pt. and placed in pt's chart. Pt. was provided with a TAP card.
--- NOTE | 2019-04-26 11:28 | NUR ---
MILITARY TECHNOLOGY SPECIALIST NOTE PATIENT SIGNED FORM AMA , CHARGE NURSE NOTIFIED HOWARD MASON DNP NOTIFIED , SERA FROM SOCIAL SERVICE AT BEDSIDE ,WAIVER GIVEN, TELE REMOVED, HL ON RT AC REMOVED KEEP CLEAN DRY
--- NOTE | 2019-04-26 11:28 | NUR ---
MOBILE PHLEBOTOMIST NOTE LEFT HOSPITAL WITH STABLE CONDITION WAIVER SIGNED , LIST OF USP PROVIDED , TELE REMOVED WENT TO LOBBY WITH SECURITY BY WALKING
[2019-04-26] MEDS ORDERED: ATORVASTATIN 40 MG TABLET PO SCH (22:00)
[2019-04-27] MEDS ORDERED: FUROSEMIDE 40 MG/4 ML VIAL IV SCH (09:00)
== END 2019-04-26 11:25 | disposition left against medical advice (07) | DRG 194 ==
LOC: ER 21:15 → TELE1 04-26 00:07
PROVIDERS: ADMIT Nurse Practitioner Acute Care; ATTEND Nurse Practitioner Acute Care
DX: I11.0 Hypertensive heart disease with heart failure (principal); F32.3 Major depressive disorder, single episode, severe with psychotic features; Z95.1 Presence of aortocoronary bypass graft; I50.43 Acute on chronic combined systolic (congestive) and diastolic (congestive) heart failure; F17.200 Nicotine dependence, unspecified, uncomplicated; I25.10 Atherosclerotic heart disease of native coronary artery without angina pectoris; Z95.810 Presence of automatic (implantable) cardiac defibrillator; Z82.49 Family history of ischemic heart disease and other diseases of the circulatory system; Z79.899 Other long term (current) drug therapy; Z59.0 Homelessness; Z79.82 Long term (current) use of aspirin; K21.9 Gastro-esophageal reflux disease without esophagitis; F29 Unspecified psychosis not due to a substance or known physiological condition; K27.9 Peptic ulcer, site unspecified, unspecified as acute or chronic, without hemorrhage or perforation; E78.5 Hyperlipidemia, unspecified
CPT/HCPCS: 36415; 71045-TC; 80048-TC; 80061-TC; 80076-TC; 83735-TC; 83880; 84100-TC; 84484-TC; 85025-TC; 87081-TC; 93307-TC; G0378; J1940

== ENCOUNTER 2019-07-23 19:03 | Inpatient (IN) | payer MEDICAID, MEDICARE ==
[~2019-07-23] VITALS: Ht 185.4 cm; Wt 83.5 kg
--- NOTE | 2019-07-23 19:30 | NUR ---
BIBRA. C/O "FEELING SHORT OF BREATH. MAYBE HEAT STROKE" -SOB NOTED. PT AGITATED. VSS. AMBULATORY. RR EVEN & UNLABORED. DENIES CP, DIZZINESS, N/V, WEAKNESS @ THIS TIME. SEEN & EVAL'D BY DR. SIMMONS & WILL CONT TO MONITOR.
[2019-07-23 19:47] LABS: BASOPHILS % (AUTO) 0.8 % (0.0-2.0); EOSINOPHILS % (AUTO) 11.2 % (0.0-6.0); HEMATOCRIT 40 % (39-51); HEMOGLOBIN 12.9 g/dL (13.5-17.5); LYMPHOCYTES # (AUTO) 1.2 /CMM (0.8-4.8); LYMPHOCYTES % (AUTO) 21.2 % (20.0-44.0); MEAN CORPUSCULAR HGB CONC 32 g/dl (31.0-36.0); MEAN CORPUSCULAR VOLUME 85 fL (80-96); MONOCYTES # (AUTO) 0.7 /CMM (0.1-1.30); MONOCYTES % (AUTO) 11.7 % (2.0-12.0); NEUTROPHILS # (AUTO) 3.2 /CMM (1.8-8.9); NEUTROPHILS % (AUTO) 55.1 % (43.0-81.0); PLATELET COUNT (AUTO) 163 /CMM (150-450); WHITE BLOOD COUNT (AUTO) 5.9 K/uL (4.3-11.0)
[2019-07-23 20:00] LABS: CARBON DIOXIDE 27 mmol/L (21-32); CHLORIDE 107 mmol/L (98-107); CREATININE 1.2 mg/dL (0.6-1.3); GLUCOSE 107 mg/dL (74-106); SODIUM SERUM 143 mmol/L (136-145); UREA NITROGEN, BLOOD 32 mg/dL (7-18)
[2019-07-23 20:12] LABS: ALANINE AMINOTRANSFERASE 39 U/L (12-78); ALBUMIN 3.1 g/dL (3.4-5.0); ALCOHOL, BLOOD < 3 mg/dL (0-0); ALKALINE PHOSPHATASE 97 U/L (46-116); ASPARTATE AMINOTRANSFERASE 59 U/L (15-37); B-TYPE NATRIURETIC PEPTIDE 10344 PG/ML (0-125); BILIRUBIN,DIRECT 0.1 mg/dL (0.0-0.2); BILIRUBIN,TOTAL 0.4 mg/dL (0.2-1.0); TOTAL PROTEIN, SERUM 6.1 g/dL (6.4-8.2)
[2019-07-23] MEDS ORDERED: ENOXAPARIN SODIUM 80 MG/0.8 ML DISP.SYRIN SQ ONE (20:30)
[2019-07-23] MEDS ORDERED: ENOXAPARIN SODIUM 100 MG/ML DISP.SYRIN SQ ONE (20:33)
--- NOTE | 2019-07-23 20:44 | NUR ---
PAGED TRANSMISSION REPAIRER MARIANO
--- NOTE | 2019-07-23 20:53 | NUR ---
PAGED NADIR GONSALEZ FOR ADMISSION
[2019-07-23] MEDS ORDERED: NITROGLYCERIN 0.4 MG/TAB BOTTLE SL PRN (21:30)
--- NOTE | 2019-07-23 21:35 | NUR ---
REPORT GIVEN TO JOSEPH HUERTA FOR LEO.
[2019-07-23 22:46] VITALS: BP 143/48
--- NOTE | 2019-07-23 23:08 | NUR ---
RN DEVON OPENING NOTE RECEIVED REPORT FROM AIDAN IN ER. PATIENT ARRIVED A/O X3 IN [facility] NO SIGNS OF DISTRESS OR ANY SIGNS OF SOB. PATIENT ABLE TO AMBULATE TO BED. PATIENT ON ROOM AIR. RHYTHM IS PACING WITH HR OF 78. PATIENT REFUSED WOUND CHECK AND BELONGING LIST WITNESSED BY RN AND SUPERINTENDENT BUILDING. HAS IV #20 GAUGE ON RAC PATENT AND FLUSHING WELL. LUNGS SOUNDS CLEAR. SAFETY MEASURES APPLIED, BED IS LOW, SIDE RAILS UP X3, AND CALL LIGHT WITHIN REACH. WILL CONTINUE TO MONITOR.
--- NOTE | 2019-07-24 03:23 | NUR ---
DEVON RN NOTE COLLECTED URINE SPECIMEN.
--- NOTE | 2019-07-24 03:41 | NUR ---
TD RN NOTES PT AGITATED SHOUTING AT STAFF. PT REDIRECTED. WILL MONITOR PT CLOSELY.
[2019-07-24 04:17] VITALS: BP 131/92
[2019-07-24 04:55] LABS: BASOPHILS # (AUTO) 0.1 /CMM (0.0-0.2); BASOPHILS % (AUTO) 0.9 % (0.0-2.0); EOSINOPHILS % (AUTO) 10.3 % (0.0-6.0); HEMATOCRIT 41 % (39-51); HEMOGLOBIN 13.3 g/dL (13.5-17.5); LYMPHOCYTES # (AUTO) 1.3 /CMM (0.8-4.8); LYMPHOCYTES % (AUTO) 17.6 % (20.0-44.0); MEAN CORPUSCULAR HGB CONC 33 g/dl (31.0-36.0); MEAN CORPUSCULAR VOLUME 84 fL (80-96); MONOCYTES # (AUTO) 0.8 /CMM (0.1-1.30); NEUTROPHILS # (AUTO) 4.3 /CMM (1.8-8.9); NEUTROPHILS % (AUTO) 60.2 % (43.0-81.0); PLATELET COUNT (AUTO) 150 /CMM (150-450); RED BLOOD CELL COUNT(AUTO) 4.85 MIL/uL (4.5-6.0); WHITE BLOOD COUNT (AUTO) 7.2 K/uL (4.3-11.0)
[2019-07-24 05:06] LABS: ALBUMIN 2.9 g/dL (3.4-5.0); BILIRUBIN,TOTAL 0.5 mg/dL (0.2-1.0); CALCIUM, SERUM 8.4 mg/dL (8.5-10.1); CREATININE 1.1 mg/dL (0.6-1.3); PHOSPHORUS 3.4 mg/dL (2.5-4.9); POTASSIUM 3.6 mmol/L (3.5-5.1); TOTAL PROTEIN, SERUM 5.9 g/dL (6.4-8.2)
[2019-07-24 05:20] LABS: THYROID STIMULATING HORMONE 0.845 uIU/mL (0.358-3.74)
--- NOTE | 2019-07-24 05:23 | NUR ---
TD RN NOTES INFORMED BABBITT SPINNER REGARDING TROP TRENDING DOWN TO 5.729. NO NEW ORDERS.
--- NOTE | 2019-07-24 06:40 | NUR ---
MS RN NOTE LET DR. GONSALEZ KNOW ABOUT ECCO BEING PERFORMED ONLY ON WEEKDAYS AND ADVISED IF HE WOULD LIKE TO CHANGE THE ORDER TO STAT. DR GONSALEZ SAID TO CHANGE ORDER TO STAT.
[2019-07-24 06:59] LABS: APPEARANCE,URINE CLEAR (CLEAR); BILIRUBIN,URINE NEGATIVE (NEGATIVE); BLOOD, URINE NEGATIVE Ery/uL (NEGATIVE); COLOR,URINE YELLOW (YELLOW); KETONES,URINE NEGATIVE (NEGATIVE); LEUKOCYTE ESTERASE ,URINE NEGATIVE (NEGATIVE); NITRITE, URINE NEGATIVE (NEGATIVE); PH,URINE 5.5 (5.0-8.0); PROTEIN,URINE NEGATIVE (NEGATIVE); UGLUCOSE NEGATIVE (NEGATIVE); UROBILINOGEN,URINE 0.2 EU/dL (0.2)
--- NOTE | 2019-07-24 07:22 | NUR ---
TD RN NOTES NO RESPIRATORY DISTRESS .NO CHEST PAIN NOTED. WILL ENDORSE TO THE AM NURSE FOR CONTINUITY OF CARE.
[2019-07-24] MEDS ORDERED: PANTOPRAZOLE 40 MG TABLET.DR PO SCH (07:30)
--- NOTE | 2019-07-24 07:30 | NUR ---
RN NOTES RECEIVED PATIENT IN BED, A/A/O X4, ABLE TO MAKE NEEDS KNOWN WITH SOME SLURRING OF SPEECH, ON ROOM AIR, BREATHING EVEN AND UNLABORED, NO SOB NOTED, BREATHING FINE. V PACING WITH HR ON THE 64 O THE MONITOR. WITH COMPLAINTS OF NECK PAIN 5/10 AND WAS ASKING FOR A HOT PACK- WILL PROVIDE. IV ACCESS NOTED ON THE RAC G [address], DRESSING IN CLEAN AND INTACT, PATENT O FLUSHING. NO SIGN OF INFECTION AND INFILTRATION NOTED AT THIS TIME. PATIENT ENCOURAGE TO VERBALIZE FEELINGS AND CONCERNS , CALL FOR HELP AD ASSISTANCE. SAFETY MEASURES OBSERVED AND MAINTAINED. CALL LIGHT PLACED WITHIN REACH. WILL CONTINUE TO MONITOR PATIENT CLOSELY
[2019-07-24 08:00] VITALS: BP 121/70
[2019-07-24] MEDS ORDERED: CARVEDILOL 3.125 MG TABLET PO SCH (08:00)
[2019-07-24] MEDS ORDERED: IPRATROPIUM NEB FS 0.5 MG/2.5 ML AMPUL.NEB NEB SCH (08:00)
[2019-07-24] MEDS ORDERED: ASPIRIN EC 81 MG TABLET.DR PO SCH (09:00)
[2019-07-24] MEDS ORDERED: NICOTINE PATCH (14MG) 14 MG PATCH.TD24 TD SCH (09:00)
[2019-07-24] MEDS ORDERED: FUROSEMIDE 40 MG/4 ML VIAL IV SCH (09:00)
--- NOTE | 2019-07-24 09:30 | NUR ---
RN NOTES PATIENT REQUESTED FOR WHEELCHAIR DESPITE ABLE TO WALK STEADILY "I DONT WANT TO BE A FALL VICTIM" INFORMED PATIENT , THAT IS NOT HOW THINGS WORK, WE CAN ASK THE PHYSICAL THERAPY TO COME AND ASSESS HIM BUT PATIENT DID NOT LIKE THIS IDEA AND STARTED BEING MAD, YELLING AND BLURRING OUT " CRAP" "BULL SHITS" TO THE POINT THAT HE WAS ASKING FOR CHARGE NURSE AND ADMINISTRATION TO TALK ABOUT THIS. CHARGE NURSE MADE AWARE OF THE SITUATION
[2019-07-24 09:42] VITALS: BP 121/70
--- NOTE | 2019-07-24 10:20 | NUR ---
R NOTES PATIENT AT THE STATION AT THIS TIME, STILL MAD AND YELLING WANTED TO TALK TO CHARGE NURSE/ ADMINISTRATION. PATIENT ATTENDED BUT DESPITE ALL THE EXPLAINING HE IS STILL YELLING BY THE STATION THUS THE NEED TO CALL SECURITY. PATIENT AND SECURITY PERSONNEL HAD A LONG CONVERSATION WHICH THEN LED TO PATIENT GOING TO HIS ROOM
--- NOTE | 2019-07-24 10:44 | NUR ---
RN NOTES DR. RODRIGUEZ IN THE UNIT. UPDATED ON PATIENT'S CONDITION. SPECIFICALLY INFORMED LATER ABOUT THE LATEST TROPONIN LEVEL AT 4.3, ALSO MD REQUEST FOR PSYCH CONSULT. [facility] AND HAD FIGURED OUT THET DR. SPIVEY IS THE TIRE CORD WEAVER FOR TODAY. ORDER PLACED IN AND CARRIED OUT. Addendum: 07/24/19 at 1310 by KANDY RIVERA RN DR. RODRIGUEZ WHO IS AT TH UNIT AT THIS TIME ALSO INFORMED OF THE PATIENT'S DESIRE TO GO AMA. PER MD, AMA IS NOT ADVISABLE TO THE PATIENT SPECIALLY AT HIS CONDITION AT THIS TIME, ESPECIALLY THAT THE TROPONIN IS ELEVATED. PATIENT MADE AWARE.
[2019-07-24] MEDS ORDERED: HALOPERIDOL LACTATE INJ 5 MG/ML VIAL IM PRN (11:30)
--- NOTE | 2019-07-24 11:50 | NUR ---
RN NOTES PATIENT AT THE STATION ONCE MORE " I AM GOING" "SHOW ME TH EFRON DOOR" THE PATIENT WAS ASKED TO WHY IS HE ASKING FOR THE DOOR THE PATIENT KEEP ON YELLING "I HAVE THE RIGHTS TO CHECK IN AD OUT MYSELF" " AM I ON HOLD? AM I ON 5150". PATIENT WAS REFORMED THAT IT IS NOT ADVISABLE FOR HIM TO GO AMA SPECIALLY THAT THE TROPONIN LEVEL IS ELEVATED AND THAT THE HEART IS NOT ON A VERY WELL CONDITION AND THAT IT WOULD BE RISKY FOR HIM TO GO OUT AND LEAVE THE HOSPITAL. BUT THE PATIENT KEEP ON YELLING THE SAME ARGUMENT THAT HE IS NOT ON HOLD AND THAT HE KNOW HIS RIGHTS. AT THIS TIME, SECURITY HAS BEEN CALLED AGAIN. CHARGE NURSE CALL [facility] AND FOLLOW UP WITH DR. SPIVEY BUT TO NO AVAIL. I CALLED EDGER TECHNICIAN AND SPOKE TO JEEVAN. EXPLAINED THE SITUATION TO JEEVAN, SPECIFICALLY MENTIONED TO THE LATER THAT THE PATIENT IS ORIENTED 2-3, AND NOT O ANY HOLD. PER JEEVAN IT'S OKAY TO SEND THE PATIENT ON AMA
--- NOTE | 2019-07-24 11:54 | NUR ---
RN NOTES PATIENT SIGNED AMA FORM. ID BAND AND IV ACCESS SITE REMOVED. WALKED OUT OF THE UNIT ACCOMPANIED BY SECURITY. DR. RODRIGUEZ MADE AWARE
[2019-07-24] MEDS ORDERED: ENOXAPARIN SODIUM 40 MG/0.4 ML DISP.SYRIN SQ SCH (21:00)
[2019-07-24] MEDS ORDERED: ATORVASTATIN 40 MG TABLET PO SCH (22:00)
== END 2019-07-24 11:54 | disposition left against medical advice (07) | DRG 194 ==
LOC: ER 19:04 → TELE-TD 21:30 → TELE1 07-24 11:19
PROVIDERS: ADMIT Registered Nurse; ATTEND Student in an Organized Health Care Education/Training Program
DX: I11.0 Hypertensive heart disease with heart failure (principal); I21.A1 Myocardial infarction type 2; E44.0 Moderate protein-calorie malnutrition; G93.41 Metabolic encephalopathy; I69.354 Hemiplegia and hemiparesis following cerebral infarction affecting left non-dominant side; I50.23 Acute on chronic systolic (congestive) heart failure; E78.5 Hyperlipidemia, unspecified; E66.9 Obesity, unspecified; F17.200 Nicotine dependence, unspecified, uncomplicated; Z95.1 Presence of aortocoronary bypass graft; Z91.14 Patient's other noncompliance with medication regimen; Z87.11 Personal history of peptic ulcer disease; Z82.49 Family history of ischemic heart disease and other diseases of the circulatory system; Z79.899 Other long term (current) drug therapy; Z79.82 Long term (current) use of aspirin; I25.10 Atherosclerotic heart disease of native coronary artery without angina pectoris; F32.9 Major depressive disorder, single episode, unspecified; Z59.0 Homelessness; N52.9 Male erectile dysfunction, unspecified; F29 Unspecified psychosis not due to a substance or known physiological condition; Z95.0 Presence of cardiac pacemaker; J90 Pleural effusion, not elsewhere classified; F20.9 Schizophrenia, unspecified; K21.9 Gastro-esophageal reflux disease without esophagitis; I34.0 Nonrheumatic mitral (valve) insufficiency; I27.20 Pulmonary hypertension, unspecified
CPT/HCPCS: 36415; 71045-TC; 80048-TC; 80053-TC; 80061-TC; 80076-TC; 80305; 81000-TC; 83735-TC; 83880; 84100-TC; 84443-TC; 84484-TC; 85025-TC; 87040-TC; 87081-TC; 87086-TC; 93307-TC; G0378; G0480; J1650; J1940

== ENCOUNTER 2019-09-26 14:20 | Inpatient (IN) | payer MEDICARE, MEDICAID ==
[~2019-09-26] VITALS: Ht 177.8 cm; Wt 78.9 kg
--- NOTE | 2019-09-26 14:25 | NUR ---
"BIBRA39, FROM [facility], C/O BILATERAL LEG PAIN x 2 HRS POULTRY BUYER, 08/25 PS" PT AAOX4, -SOB, NAD NOTED, VSS ,PENDING MD AGUILAR
[2019-09-26 14:56] LABS: BASOPHILS # (AUTO) 0.1 /CMM (0.0-0.2); BASOPHILS % (AUTO) 1.2 % (0.0-2.0); EOSINOPHILS % (AUTO) 7.5 % (0.0-6.0); HEMATOCRIT 36 % (39-51); HEMOGLOBIN 11.5 g/dL (13.5-17.5); LYMPHOCYTES # (AUTO) 0.7 /CMM (0.8-4.8); LYMPHOCYTES % (AUTO) 12.3 % (20.0-44.0); MEAN CORPUSCULAR HGB CONC 32 g/dl (31.0-36.0); MEAN CORPUSCULAR VOLUME 85 fL (80-96); MONOCYTES # (AUTO) 0.6 /CMM (0.1-1.30); MONOCYTES % (AUTO) 10.1 % (2.0-12.0); NEUTROPHILS # (AUTO) 3.9 /CMM (1.8-8.9); NEUTROPHILS % (AUTO) 68.9 % (43.0-81.0); PLATELET COUNT (AUTO) 245 /CMM (150-450); RED BLOOD CELL COUNT(AUTO) 4.19 MIL/uL (4.5-6.0); WHITE BLOOD COUNT (AUTO) 5.6 K/uL (4.3-11.0)
[2019-09-26 15:13] LABS: CALCIUM, SERUM 8.5 mg/dL (8.5-10.1); POTASSIUM 4.2 mmol/L (3.5-5.1)
[2019-09-26] MEDS ORDERED: FUROSEMIDE 20 MG/2 ML VIAL IV ONE (16:00)
[2019-09-26] MEDS ORDERED: FUROSEMIDE 20 MG/2 ML VIAL ONE (16:04)
[2019-09-26] MEDS ORDERED: TRAM50TA2 PO (16:13)
[2019-09-26 16:30] VITALS: BP 126/68
[2019-09-26] MEDS ORDERED: CLINDAMYCIN 600 MG in IV D5W 100 ML IV ONE (16:30)
[2019-09-26] MEDS ORDERED: MAGNESIUM HYDROXIDE 30 ML UDC PO PRN (17:00)
[2019-09-26] MEDS ORDERED: ACETAMINOPHEN 325 MG TABLET PO PRN (17:00)
[2019-09-26] MEDS ORDERED: TRAMADOL HCL 50 MG TABLET PO PRN (17:00)
[2019-09-26] MEDS ORDERED: MAG HYDROX/AL HYDROX/SIMETH 30 ML UDC PO PRN (17:00)
[2019-09-26] MEDS ORDERED: ONDANSETRON HCL/PF 4 MG/2 ML VIAL IVP PRN (17:00)
[2019-09-26] MEDS ORDERED: TEMAZEPAM 15 MG CAPSULE PO PRN (17:00)
[2019-09-26] MEDS ORDERED: MORPHINE SULFATE INJ 4 MG/ML DISP.SYRIN IV PRN (17:00)
--- NOTE | 2019-09-26 17:27 | NUR ---
REPORT GIVEN TO NURSE FOR [facility]O; PT WILL BE TRANSPORTED 3RD FLOOR
[2019-09-26 17:40] VITALS: BP 126/68
[2019-09-26] MEDS ORDERED: VANCOMYCIN 1.25 GM in IV D5W 250 ML IV SCH (18:00)
[2019-09-26] MEDS: ENTRESTO PO SCH (18:34)
[2019-09-26] MEDS ORDERED: FEE PK DOSING 1 MIN EA MC ONE (18:45)
--- NOTE | 2019-09-26 18:45 | NUR ---
SEMICONDUCTOR ENGINEER ADMITTING NOTES ADMITTED A 69 Y/O MALE FROM [facility]IA [facility]. PT IS A/O X3 AND ABLE TO MAKE NEEDS KNOWN. PT IS HOMELESS WITH DX OF LLE CELLULITIS. PT ORIENTED TO ROOM AND STAFF. V/S TAKEN AND RECORDED. ON ROOM AIR, BREATHING EVEN AND UNLABORED. PHOTOS OF SKIN TAKEN AND FILED IN CHART. ABDOMEN SOFT, NON-TENDER AND NON-DISTENDED WITH + BOWEL SOUNDS ON FOUR QUADRANTS. LUNGS CLEAR ON AUSCULTATIONS BILATERALLY. PT PLACED ON TELEMONITORING SHOWING V-PACING WITH HR ON THE 90'S, NO C/O CARDIAC DISTRESS VOICED. PT WITH IV ACCESS NOTED ON LAC G#20 INTACT AND PATENT, IV ATB VANCOMYCIN INFUSING AT THIS TIME, NO S.S OF INFILTRATIONS NOTED. SAFETY MEASURES INITIATED. BED PLACED IN LOWEST LOCKED POSITION WITH SIDE-RAILS UP X2. CALL LIGHT AND BEDSIDE TABLE PLACED WITHIN EASY REACH OF PT. WILL ENDORSE TO HEAD OF ART NURSE FOR LEO.
--- NOTE | 2019-09-26 19:30 | NUR ---
MS RN NOTES RECEIVED ON BED SLEEPING,AROUSABLE TO VERBAL STIMULI,BREATHING REGULAR,NOT IN ANY FORM DISTRESS.IV VANCOMYCIN IN PROGRESS VIA IV PUMP ON RIGHT AC.PATIENT IS HOMELESS,WITH LOTS OF STUFF AT BEDSIDE.NOTED SLIGHT REDNESS ON LEFT LOWER LEG,ENCOURAGE TO ELEVATE ON PILLOWS.CALL LIGHT IN REACH,NEEDS ANTICIPATED.
[2019-09-26 20:00] VITALS: BP 104/48
[2019-09-26 20:26] VITALS: BP 104/48
--- NOTE | 2019-09-26 23:15 | NUR ---
STOGIE PACKER NOTES AWAKE THIS TIME,CLAIMED HE'S HUNGRY,PROVIDED WITH CRACKERS,SANDWICH AND APPLE JUICE AND PITCHER OF ICE WATER
[2019-09-27] MEDS: HYDROCODONE/APAP 5/325MG 1 EACH TABLET PO PRN ×2 (00:54→21:09)
--- NOTE | 2019-09-27 00:54 | NUR ---
LASER PRINT OPERATOR NOTES PAIN MANAGEMENT C/O PAIN 6/10 ON PAIN SCALE ON HIS LEFT LOWER LEG,MEDICATED WITH NORCO 5/325MG,1TAB PO ORDERED
[2019-09-27 01:10] VITALS: BP 110/57
--- NOTE | 2019-09-27 02:00 | NUR ---
RV REPAIRER NOTE AWAKE, SITTING ON EDGE OF BED USING HIS LAPTOP
[2019-09-27 02:28] VITALS: BP 110/57
[2019-09-27 04:35] VITALS: BP 151/67
[2019-09-27] MEDS: VANCOMYCIN 1 GM in IV D5W 250 ML IV SCH ×2 (05:26→17:35)
--- NOTE | 2019-09-27 05:45 | NUR ---
MS RN NOTES REMINDED AGAIN THAT HIS BREAKFAST WILL BE HOLD TILL HE'S SEEN BY CARDIO DOCTOR,UPSET AND SCREAMING THAT HE WAS TOLD IN ER THAT HE CAN HAVE FOOD IN THE UNIT,THAT HE CAME FOR HIS LEG PROBLEM,NOT FOR HIS HEART.CHARGE NURSE FRANCOIS ALSO TRIED TO EXPLAINED THE SITUATION,HE CALM DOWN A BIT.
--- NOTE | 2019-09-27 06:25 | NUR ---
JEWELRY CONSULTANT NOTES FAIRLY RESTED,SLEPT WITH INTERVALS,LEFT LEG/FOOT REMAINS SWOLLEN AND REDDISH.NORCO EFFECTIVE FOR PAIN MANAGEMENT,IN NO ACUTE DISTRESS.CALL LIGHT IN REACH,NEEDS ATTENDED.
[2019-09-27 06:46] LABS: BASOPHILS # (AUTO) 0.1 /CMM (0.0-0.2); EOSINOPHILS % (AUTO) 10.7 % (0.0-6.0); HEMATOCRIT 38 % (39-51); HEMOGLOBIN 12.2 g/dL (13.5-17.5); LYMPHOCYTES # (AUTO) 0.7 /CMM (0.8-4.8); LYMPHOCYTES % (AUTO) 11.2 % (20.0-44.0); MEAN CORPUSCULAR HGB CONC 32 g/dl (31.0-36.0); MEAN CORPUSCULAR VOLUME 86 fL (80-96); MONOCYTES # (AUTO) 0.7 /CMM (0.1-1.30); MONOCYTES % (AUTO) 11.1 % (2.0-12.0); NEUTROPHILS # (AUTO) 4.3 /CMM (1.8-8.9); PLATELET COUNT (AUTO) 230 /CMM (150-450); RED BLOOD CELL COUNT(AUTO) 4.44 MIL/uL (4.5-6.0); WHITE BLOOD COUNT (AUTO) 6.5 K/uL (4.3-11.0)
[2019-09-27 06:54] LABS: CALCIUM, SERUM 8.2 mg/dL (8.5-10.1); CREATININE 1.2 mg/dL (0.6-1.3); PHOSPHORUS 2.9 mg/dL (2.5-4.9); POTASSIUM 4.1 mmol/L (3.5-5.1)
[2019-09-27 08:00] VITALS: BP 112/70
[2019-09-27] MEDS: PANTOPRAZOLE 40 MG TABLET.DR PO SCH (08:46)
[2019-09-27] MEDS: ASPIRIN EC 81 MG TABLET.DR PO SCH (08:46)
[2019-09-27] MEDS: FUROSEMIDE 40 MG TABLET PO SCH (08:47)
[2019-09-27] MEDS: ENOXAPARIN SODIUM 40 MG/0.4 ML DISP.SYRIN SQ SCH (08:51)
[2019-09-27] MEDS: ENTRESTO PO SCH ×2 (08:51→17:00)
--- NOTE | 2019-09-27 09:31 | NUR ---
WOUND CARE CONSULT: PT PRESENTS WITH LARGE AREA OF PURPLISH DISCOLORATION ON RT BUTTOCK/HIP AREA, SEVERE SWELLING TO LOWER LEGS AND FEET, DRY SCAB TO RT KNEE, ALL PRESENT ON ADMISSION. DEFER TO MD FOR SWELLING. PT IS CONTINENT AND INDEPENDENT WITH BED MOBILITY. WILL SEE PRN.
[2019-09-27 16:00] VITALS: BP 108/65
--- NOTE | 2019-09-27 17:30 | NUR ---
IV INADVERTENTLY FELL OUT AND RESTARTED IN RT. FOREARM #22 ANGIO.
--- NOTE | 2019-09-27 19:30 | NUR ---
MS RN NOTES RECEIVED ON BED A/ X4,HOMELESS,SALINE LOCK RIGHT FORE INTACT AND PATENT.LEFT LOWER LEG REMAINS REDDISH AND SWOLLEN,ENCOURAGE TO ELEVATE ON PILLOW WHILE ON BED.CALL LIGHT IN REACH,NEEDS ANTICIPATED.
[2019-09-27 20:00] VITALS: BP 119/75
--- NOTE | 2019-09-27 21:00 | NUR ---
MS RN NOTES PER [facility] WORKER,PATIENT REFUSED TO CONTINUE ARTERIAL DOPPLER ON LEFT LOWER LEG
--- NOTE | 2019-09-27 21:09 | NUR ---
MS RN NOTES PAIN MANAGEMENT C/O PAIN ON LEFT LOWER LEG 7/10 ON PAIN SCALE,MEDICATED WITH NORCO 5/325MG,1 TAB PO ORDERED
[2019-09-28] MEDS: HYDROCODONE/APAP 5/325MG 1 EACH TABLET PO PRN (05:53)
--- NOTE | 2019-09-28 05:53 | NUR ---
MS RN NOTES PAIN MANAGEMENT AWAKE, C/O LEFT LOWER LEG,MEDICATED WITH NORCO 5/325MG,1 TAB PO ORDERED.
--- NOTE | 2019-09-28 06:56 | NUR ---
MS RN NOTES SLEPT WITH INTERVALS.PAIN MANAGEMENT EFFECTIVE.SO DEMANDING HIS NEEDS.LEFT LOWER LEG REMAINS SWOLLEN AND REDDISH.IN NO ACUTE DISTRESS.
[2019-09-28] MEDS: VANCOMYCIN 1 GM in IV D5W 250 ML IV SCH ×2 (07:00→17:26)
--- NOTE | 2019-09-28 07:38 | NUR ---
MS RN OPENING NOTES PATIENT IN BED RESTING COMFORTABLY. PATIENT IN NO ACUTE DISTRESS. NO SOB NOTED. PATIENT BREATHING IS EVEN AND UNLABORED. PATIENT NEEDS AND CONCERNS ADDRESSED. PATIENT SAFETY PRECAUTIONS IN PLACE. PATIENT BED IS LOCKED AND IN LOWEST POSITION. CALL LIGHT WITHIN REACH. WILL CONTINUE TO MONITOR.
[2019-09-28 08:00] VITALS: BP 122/76
--- NOTE | 2019-09-28 08:14 | NUR ---
WOUND CARE CONSULT: RECEIVED SECOND WOUND CARE CONSULT. PT SEEN 09/27/19. DEFER TO MD FOR LOWER EXTREMITY ARTERIAL ISSUES.
[2019-09-28 08:21] LABS: BASOPHILS # (AUTO) 0.1 /CMM (0.0-0.2); BASOPHILS % (AUTO) 1.5 % (0.0-2.0); EOSINOPHILS % (AUTO) 9.4 % (0.0-6.0); HEMATOCRIT 38 % (39-51); HEMOGLOBIN 12.2 g/dL (13.5-17.5); LYMPHOCYTES % (AUTO) 12.7 % (20.0-44.0); MEAN CORPUSCULAR HGB CONC 32 g/dl (31.0-36.0); MEAN CORPUSCULAR VOLUME 85 fL (80-96); MONOCYTES # (AUTO) 0.7 /CMM (0.1-1.30); MONOCYTES % (AUTO) 9.2 % (2.0-12.0); NEUTROPHILS % (AUTO) 67.2 % (43.0-81.0); PLATELET COUNT (AUTO) 261 /CMM (150-450); RED BLOOD CELL COUNT(AUTO) 4.48 MIL/uL (4.5-6.0); WHITE BLOOD COUNT (AUTO) 7.5 K/uL (4.3-11.0)
[2019-09-28] MEDS: ASPIRIN EC 81 MG TABLET.DR PO SCH (08:28)
[2019-09-28] MEDS: PANTOPRAZOLE 40 MG TABLET.DR PO SCH (08:28)
[2019-09-28] MEDS: FUROSEMIDE 40 MG TABLET PO SCH (08:28)
[2019-09-28] MEDS: ENOXAPARIN SODIUM 40 MG/0.4 ML DISP.SYRIN SQ SCH (08:31)
[2019-09-28] MEDS: ENTRESTO PO SCH ×2 (08:32→17:25)
[2019-09-28 09:47] LABS: CALCIUM, SERUM 8.2 mg/dL (8.5-10.1); CREATININE 1.1 mg/dL (0.6-1.3); POTASSIUM 4.5 mmol/L (3.5-5.1)
--- NOTE | 2019-09-28 11:46 | NUR ---
MS RN NOTES CALLED MEDICAL OFFICES OF DR. DE LEÓN, PER [facility] WORKING THERE IS NO CATH REPORT. PER ENMA THERE IS NO INFORMATION OR REPORT OF CATH DONE. ONLY [place] INFO PROVIDED.
[2019-09-28] MEDS ORDERED: IV NS 0.9% 250 ML IV ONE (13:58)
[2019-09-28] MEDS ORDERED: CT SWABBABLE VALVE TRANS SET 1 EA INFUS.SET MC ONE (13:58)
[2019-09-28] MEDS ORDERED: IOHEXOL-350 100 ML VIAL IV ONE (13:58)
--- NOTE | 2019-09-28 15:16 | NUR ---
Social service consult requested by Dr. Barnes for homelessness. Pt. is a 69 year old male who was admitted to [facility] for CHG and LLE cellulitis. SW met with the pt. bedside. Pt. is alert and oriented x 4. Pt. was oh his laptop when SW visited with him. Pt. states he is homeless and has been for the past 6 years. Prior to being homeless, pt. was residing in [facility]. Pt. receives $900 in SSI per month. Pt. wants to go to an assisted living or board and care, however pt. will not have the funds until October 16. SW offered pt. half-way placement, however pt. declined. Pt. receives services at [place] [facility] and [facility]. Pt. smokes 1/2 to 1 pack a day of cigarettes per day. P. denies any alcohol or drug use. Pt. states he has anxiety and is depressed at times due to his homelessness. Pt. denies any suicidal and homicidal ideations and visual/auditory hallucinations at this time. ANTOINE to provide pt. with homeless resources upon discharge.
[2019-09-28 16:00] VITALS: BP 109/62
--- NOTE | 2019-09-28 18:21 | NUR ---
MS RN CLOSING NOTE PATIENT IN BED RESTING COMFORTABLY. PATIENT IN NO ACUTE DISTRESS. NO SOB NOTED. PATIENT BREATHING IS EVEN AND UNLABORED. PATIENT KEPT CLEAN AND DRY THROUGHOUT SHIFT. PATIENT NEEDS AND CONCERNS ADDRESSED. PATIENT SAFETY PRECAUTIONS IN PLACE. PATIENT BED IS LOCKED AND IN LOWEST POSITION. CALL LIGHT WITHIN REACH. WILL ENDORSE CARE TO PM SHIFT FOR LEO.
--- NOTE | 2019-09-28 18:34 | NUR ---
MS RUIZ NOTE OFFLOADED EXTREMITIES ON PILLOWS MUCH PATIENT WOULD ALLOW, PATIENT IN NO ACUTE DISTRESS. NEEDS AND CONCERNS ADDRESSED. Addendum: 09/28/19 at 1835 by DIPAK POLLARD RN WILL ENDORSE CARE TO PM SHIFT FOR LEO.
--- NOTE | 2019-09-28 19:20 | NUR ---
CHANGE OF SHIFT REPORT Patient sitting up edge of the bed, Left foot swelling with redness, patient refused foot to be touch due to pain, offered pain medication but refused at this time, education provided. Instructed to use call light for assistance, verbalized understanding. Fall precaution maintained.
[2019-09-28 20:00] VITALS: BP 120/49
[2019-09-28 20:08] VITALS: BP 120/44
[2019-09-29] MEDS: VANCOMYCIN 1 GM in IV D5W 250 ML IV SCH ×2 (04:56→17:14)
--- NOTE | 2019-09-29 06:16 | NUR ---
END OF SHIFT REPORT Patient in bed, stable oxygen saturation on RA. Left leg warmth, swelling extending to left foot. Encouraged leg elevation while in bed, uncooperative at times. Irritable and angry behavior with hygiene care. Able to stand up, left sided weakness, refused assistance. Remains on IV antibiotic, Afebrile overnight. Fall precaution maintained.
[2019-09-29 06:48] LABS: CALCIUM, SERUM 8.3 mg/dL (8.5-10.1); POTASSIUM 4.1 mmol/L (3.5-5.1)
--- NOTE | 2019-09-29 07:33 | NUR ---
MS RN OPENING NOTES Received Patient awake and resting in bed. A/O x 4. VS stable with no acute distress, breathing even and unlabored on room air with no respiratory distress. Denies pain. LLE edema, repositioned and encouraged Patient to keep LLE elevated on pillow. Patient verbalized understanding. 18g PIV on RAC clean, intact, patent and flushing well with IV ABX infusing. Safety precautions in place. Bed locked and set to lowest position with side rails x 2 up. All needs rendered at this time. Call light within reach. Will continue to monitor.
[2019-09-29 08:00] VITALS: BP 123/62
[2019-09-29] MEDS: ASPIRIN EC 81 MG TABLET.DR PO SCH (08:33)
[2019-09-29] MEDS: FUROSEMIDE 40 MG TABLET PO SCH (08:33)
[2019-09-29] MEDS: PANTOPRAZOLE 40 MG TABLET.DR PO SCH (08:33)
[2019-09-29] MEDS: ENTRESTO PO SCH ×2 (08:33→17:14)
[2019-09-29] MEDS: ENOXAPARIN SODIUM 40 MG/0.4 ML DISP.SYRIN SQ SCH (08:35)
[2019-09-29 16:00] VITALS: BP 110/68
--- NOTE | 2019-09-29 18:37 | NUR ---
MS RN CLOSING NOTES Patient awake and resting in bed. A/O x 4. VS stable with no acute distress, breathing even and unlabored on room air with no respiratory distress. Denies pain. LLE edema, repositioned and encouraged Patient to keep LLE elevated on pillow. Patient verbalized understanding. 18g PIV on RAC clean, intact, patent and flushing well with IV ABX infusing. Safety precautions in place. Bed locked and set to lowest position with side rails x 2 up. All needs rendered at this time. Call light within reach. Will endorse plan of care to oncoming shift.
[2019-09-29 20:00] VITALS: BP 105/61
--- NOTE | 2019-09-29 20:00 | NUR ---
MS MOTORBOAT MECHANIC INITIAL NOTES SEEN PT IN BED RESTING COMFORTABLY IN BED WITHOUT ANY ACUTE DISTRESS NOTED. ENCOURAGE HIM TO OFFLOAD BILATERAL LOWER LEGS ON PILLOWS. DENIES ANY PAIN OR ANY DISCOMFORT. HEPLOCK RIGHT AC PATENT AND INTACT. KEPT HIM WARM AND COMFORTABLE AT ALL TIMES. PLACE CALL LIGHT AT REACH.
--- NOTE | 2019-09-30 | NUR ---
MS BJ NOTES PT SLEEPING COMFORTABLY IN BED WITHOUT ANY ACUTE DISTRESS NOTED. KEPT HIM WARM AND COMFORTABLE AT ALL TIMES. WILL CONTINUE MONITOR. PLACE CALL LIGHT AT REACH.
[2019-09-30] MEDS: VANCOMYCIN 1 GM in IV D5W 250 ML IV SCH (05:26)
--- NOTE | 2019-09-30 07:06 | NUR ---
MS PACK WORKER CLOSING NOTES PT REMAINS RESTING WITHOUT ANY ACUTE DISTRESS NOTED. STABLE GLORIA THE NIGHT AND SLEPT WELL. RESPIRATION EVEN AND UNLABORED. ALL DUE MEDS GIVEN AND ALL NEEDS MET. KEPT HIM WARM AND COMFORTABLE AT ALL TIMES. PLACE CALL LIGHT AT REACH. WILL ENDORSE TO AM NURSE FOR CONTINUITY OF CARE.
[2019-09-30 07:30] LABS: CALCIUM, SERUM 8.1 mg/dL (8.5-10.1); CREATININE 1.1 mg/dL (0.6-1.3); POTASSIUM 3.9 mmol/L (3.5-5.1)
[2019-09-30 08:00] VITALS: BP 116/61
[2019-09-30] MEDS: PANTOPRAZOLE 40 MG TABLET.DR PO SCH (08:47)
[2019-09-30] MEDS: ENTRESTO PO SCH (08:48)
[2019-09-30] MEDS: ASPIRIN EC 81 MG TABLET.DR PO SCH (08:48)
[2019-09-30] MEDS: FUROSEMIDE 40 MG TABLET PO SCH (08:48)
[2019-09-30] MEDS: ENOXAPARIN SODIUM 40 MG/0.4 ML DISP.SYRIN SQ SCH (08:49)
[2019-09-30 16:12] VITALS: BP 107/51
--- NOTE | 2019-09-30 17:38 | NUR ---
MS ROLLOUT MANAGER NOTES Patient discharged to [facility] at this time. Patient in stable condition. VS stable with no acute distress. Breathing even and unlabored on room air with no respiratory distress. Denies pain. Skin assessment pictures done and placed in chart. Removed PIV on RAC intact. Medication reconciliation and discharge orders reviewed and explained to Patient. Patient verbalized understanding. All belongings with Patient. Patient will follow up with PCP at SNF. Report given to David RUIZ. Patient picked up by ambulance transport.
== END 2019-09-30 17:50 | DRG 602 ==
LOC: ER 14:27 → TELE 17:05 → MED 09-27 09:06
PROVIDERS: ADMIT Nurse Practitioner Acute Care; ATTEND Nurse Practitioner Acute Care
DX: L03.116 Cellulitis of left lower limb (principal); I50.23 Acute on chronic systolic (congestive) heart failure; I77.72 Dissection of iliac artery; I69.354 Hemiplegia and hemiparesis following cerebral infarction affecting left non-dominant side; I11.0 Hypertensive heart disease with heart failure; Z59.0 Homelessness; I25.10 Atherosclerotic heart disease of native coronary artery without angina pectoris; Z95.810 Presence of automatic (implantable) cardiac defibrillator; E78.5 Hyperlipidemia, unspecified; K21.9 Gastro-esophageal reflux disease without esophagitis; F32.9 Major depressive disorder, single episode, unspecified; F20.9 Schizophrenia, unspecified; Z87.11 Personal history of peptic ulcer disease; Z95.1 Presence of aortocoronary bypass graft; F17.210 Nicotine dependence, cigarettes, uncomplicated; I34.0 Nonrheumatic mitral (valve) insufficiency; D63.8 Anemia in other chronic diseases classified elsewhere; I73.9 Peripheral vascular disease, unspecified; M10.9 Gout, unspecified; I70.1 Atherosclerosis of renal artery
CPT/HCPCS: 36415; 71045-TC; 80048-TC; 80061-TC; 80202-TC; 83735-TC; 83880; 84100-TC; 84484-TC; 84550-TC; 85025-TC; 85730-TC; 87081-TC; 93970-TC; 97116-TC; 97530-TC; G0378; J1650; J1940; J2270; J3370; J3490; J7050; J7060; Q9967